=== PATIENT | female | born 1995 | race Caucasian/White ===

== ENCOUNTER 2019-01-09 07:37 | Observation (INO) | payer BC, OTHER ==
[2019-01-09] VITALS (11 sets, daily range): BP systolic 99–144; BP diastolic 54–80
[~2019-01-09] VITALS: Ht 170.2 cm; Wt 97.2 kg
--- NOTE | 2019-01-09 08:05 | NUR ---
AGATHA FINLEY admitted to room 411-1, with an admitting diagnosis of APPENDICITIS, on 01/09/19 from [facility] via PRIVATE VEHICLE, accompanied by MOTHER. AGATHA FINLEY introduced to surroundings, call light, bed controls, phone, TV, temperature control, lights, meal times, smoking policy, visitor policy, side rail policy, bathrooms and showers. Patient Rights given to patient in the handbook. AGATHA FINLEY verbalizes understanding that [facility] is not responsible for the loss or damage to any personal effects or valuables that are kept in the patients posession during their hospitalization. AGATHA FINLEY verbalizes understanding of Interdisciplinary Patient Education. Patient and/or family were informed about the Rapid Response Team and its purpose.
[2019-01-09] MEDS ORDERED: BUP/EPI 0.5% 1:200,000 (SENSORCAINE) 30 ML VIAL ONE (09:41)
[2019-01-09] MEDS ORDERED: LIDOCAINE 1% INJ 20 ML 20 ML VIAL ONE (09:41)
[2019-01-09] MEDS ORDERED: morphine INJ 4 MG/ML 1 ML (VIAL/SYRINGE) ONE (09:51)
[2019-01-09] MEDS ORDERED: PIPERACILLIN/TAZO 4.5 GM/NS 100 ML IV ONE ×2 (10:00)
[2019-01-09] MEDS ORDERED: ONDANSETRON 4 MG/2 ML (SDV) Z0FRAN ONE (10:38)
[2019-01-09] MEDS ORDERED: LIDOCAINE PF 2% 5 ML (XYLOCAINE) VIAL ONE (10:38)
[2019-01-09] MEDS ORDERED: DEXAMETHASONE 10 MG/ML (DECADRON) 1 ML VIAL ONE (10:38)
[2019-01-09] MEDS ORDERED: ROCURONIUM 10 MG/ML 5 ML SYRINGE IV ONE (10:38)
[2019-01-09] MEDS ORDERED: GLYCOPYRROLATE 0.2 MG/ML (ROBINUL) 2 ML VIAL ONE (10:38)
[2019-01-09] MEDS ORDERED: MIDAZOLAM 2 MG/2 ML (VERSED) VIAL ONE (10:38)
[2019-01-09] MEDS ORDERED: NEOSTIGMINE 1 MG/ML 5 ML SYRINGE ONE (10:38)
[2019-01-09] MEDS ORDERED: SEVOFLURANE (ULTANE) 15 ML INHAL SOLN ONE (10:38)
[2019-01-09] MEDS ORDERED: fentaNYL INJECTION 100 MCG/2 ML AMP ONE (10:38)
[2019-01-09] MEDS ORDERED: proPOfol 200 MG/20 ML (DIPRIVAN) VIAL IV ONE (10:38)
--- NOTE | 2019-01-09 12:13 | NUR ---
Unscheduled [employer] downtime from [phone].
[2019-01-09] MEDS ORDERED: morphine INJ 10 MG/ML 1ML (SYR OR VIAL) IVP ONE (12:15)
[2019-01-09] MEDS ORDERED: ONDANSETRON 4 MG/2 ML (SDV) Z0FRAN IVP PRN (12:15)
[2019-01-09] MEDS ORDERED: morphine INJ 4 MG/ML 1 ML (VIAL/SYRINGE) IV PRN (12:15)
[2019-01-09] MEDS ORDERED: ONDANSETRON 4 MG/2 ML (SDV) Z0FRAN IV PRN (12:15)
[2019-01-09] MEDS ORDERED: HYDROmorphone 2 MG/ML VIAL (DILAUDID) IV ONE (12:15)
[2019-01-09] MEDS ORDERED: LACTATED RINGERS 1,000 ML IV SCH (12:15)
--- NOTE | 2019-01-09 13:05 | Anesthesia-General Post-Op ---
General Patient Condition Mental Status/LOC: Same as Preop Cardiovascular: Satisfactory Nausea/Vomiting: Absent Respiratory: Satisfactory Pain: Controlled Complications: Absent Post Op Complications Complications None Follow Up Care/Instructions Patient Instructions None needed. Anesthesia/Patient Condition Patient Condition Patient is doing well, no complaints, stable vital signs, no apparent adverse anesthesia problems. No complications reported per nursing. KATHARINA CONNER CRNA Jan 09, 2019 13:05
[2019-01-09] MEDS ORDERED: CLIN150C17 PO (14:35)
--- NOTE | 2019-01-09 14:35 | NUR ---
PATIENT STATES SHE WAS TAKING THE ANTIBIOTIC THAT WAS RECENTLY FILLED ACCORDING TO THE EXT MED HX PRIOR TO ADMISSION. SHE DOES NOT NORMALLY TAKE ANY MEDICATIONS AT HOME. SHE FILLED LABETALOL EARLIER IN THE YEAR BUT STATES THAT WAS JUST DURING HER AND SHE IS NO LONGER TAKING IT.
[2019-01-09] MEDS ORDERED: PIPERACILLIN/TAZO 4.5 GM/NS 100 ML IV SCH ×2 (16:00)
--- NOTE | 2019-01-09 16:05 | OPERATIVE REPORT ---
DATE OF SERVICE: 01/09/2019 PREOPERATIVE DIAGNOSIS: Acute appendicitis. POSTOPERATIVE DIAGNOSIS: Acute appendicitis. PROCEDURE: Laparoscopic appendectomy. SURGEON: Keon Carvajal DO ANESTHESIA: General. ESTIMATED BLOOD LOSS: Minimal. COMPLICATIONS: None. INDICATIONS: The patient is a 23-year-old female who presented to outside hospital, who had a workup of CT scan and white count demonstrating exam and workup consistent with acute appendicitis. The patient was transferred here. The patient was discussed risks and benefits of procedure and wished to proceed with procedure. Consent was signed in the chart. PROCEDURE IN DETAIL: The patient was taken to the operating suite. She was prepped and draped in a sterile fashion. Timeout was performed. A 5 mm incision was made. It was made just above the umbilicus. Nino was used to dissect down to the fascia, grasped and elevated. A Veress needle was inserted in the abdomen and pneumoperitoneum was achieved. Under direct visualization of the laparoscope, a 5 mm trocar was placed in suprapubic region and a 12 mm trocar was placed in left lower quadrant. Appendix was located, inflamed with surrounding inflammation adherent to the right gutter. This was then mobilized and the appendix was then dissected around the base of the appendix. A BRAYDON 2.5 stapler was fired across the base of the appendix. Endo-BRAYDON 2.0 reloads were then fired across the mesoappendix and removed and placed in an Endobag and removed through the 12 mm trocar site. Abdomen was irrigated with copious amounts of irrigation. Hemostasis was achieved. The 12 mm trocar site fascial defect was then closed using 0 Vicryl and Endo Close. The abdomen was then desufflated. The trocars were removed. The skin was then closed using 4-0 Monocryl in a subcuticular fashion. The abdomen was then washed and dried and Skin Affix was placed over the incisions. The patient tolerated the procedure well without any complications. She was taken to recovery room in stable condition. Job ID: [id number] DocumentID: [id number] Dictated Date: 01/09/2019 11:58:12 Category Specialist Date: 01/09/2019 16:04:51 Dictated By: KEON CARVAJAL DO
[2019-01-09] MEDS ORDERED: ONDA4TAB11 PO (17:07)
--- NOTE | 2019-01-09 17:08 | Progress Note-Post Operative ---
Post-Operative Progess Note Surgeon (s)/User Experience Manager (s) Surgeon KEON WILL DO User Experience Manager: na Pre-Operative Diagnosis appendicitis Post-Operative Diagnosis same Procedure & Operative Findings Date of Procedure 01/09/19 Procedure Performed/Findings lap appy Anesthesia Type gen Estimated Blood Loss Estimated blood loss (mL): min Specimens/Packing Specimens Removed appendix KEON WILL DO Jan 09, 2019 17:08
--- NOTE | 2019-01-10 14:08 | Progress Note-Standard ---
Standard Progress Note Progress Notes/Assess & Plan Date Seen by a Provider: Jan 09, 2019 Time Seen by a Provider: 10:30 Final Diagnosis Addendum to Anesthesia Record: Diagnosis: Acute Abdominal Pain Anesthesia Plan: General Anesthesia ESSIE GROSS DO Jan 10, 2019 14:08
== END 2019-01-09 17:40 | disposition home or self-care (01) ==
LOC: 4TH 07:37
PROVIDERS: ADMIT Surgery; ATTEND Surgery
DX: K35.80 Unspecified acute appendicitis (principal); K21.9 Gastro-esophageal reflux disease without esophagitis; F17.210 Nicotine dependence, cigarettes, uncomplicated
CPT/HCPCS: 87081